=== PATIENT | female | born 1955 | race Caucasian/White ===

== ENCOUNTER 2016-06-26 11:07 | Outpatient (CLI) ==
[2012-12-06 15:09] VITALS: BMI 26.2
== END 2016-06-26 11:08 | disposition home or self-care (01) ==
LOC: AMBL 11:07
PROVIDERS: ATTEND Internal Medicine
DX: R42 Dizziness and giddiness (principal); R06.02 Shortness of breath; R55 Syncope and collapse; R00.0 Tachycardia, unspecified